=== PATIENT | female | born 1980 | race Hispanic/Latino ===

== ENCOUNTER 2019-07-07 21:49 | Emergency (ER) | payer SELFPAY ==
[2019-07-07] MEDS ORDERED: levoFLOXacin 500 MG TAB PO ONE (22:52)
[2019-07-07] MEDS ORDERED: PHENAZOPYRIDINE HCL 200 MG TAB PO ONE (22:53)
--- NOTE | 2019-07-07 23:04 | ED.PDOC ---
History of Present Illness - General Chief Complaint: Problem Stated Complaint: pain with urinating, frequency Time Seen by Provider: 07/07/19 22:52 Additional Information: Patient is a 38-year-old female who presents to the ED with chief complaint of dysuria. Patient indicates the symptoms began yesterday and have not improved despite taking Azo. Patient has a history of kidney infections and says that her symptoms today are similar to her previous infections. Patient denies any flank pain, fever or chills. Patient indicates she has burning when she pees and increased urinary frequency with mild suprapubic discomfort. Patient denies nausea or vomiting and is otherwise asymptomatic. - History of Present Illness Allergies/Adverse Reactions: Allergies NO KNOWN ALLERGY Allergy (Verified 07/07/19 22:33) Home Medications: Ambulatory Orders Ciprofloxacin HCl [Cipro] 500 mg PO BID #20 tab 07/07/19 Phenazopyridine HCl [Pyridium] 200 mg PO TID #6 tab 07/07/19 Review of Systems - Review of Systems Constitutional: States: no symptoms reported. Denies: chills, fever EENTM: States: no symptoms reported Respiratory: States: no symptoms reported. Denies: cough, short of breath Cardiology: States: no symptoms reported. Denies: chest pain, palpitations Gastrointestinal/Abdominal: States: see HPI. Denies: nausea, vomiting Genitourinary: States: see HPI, dysuria, frequency. Denies: hematuria Musculoskeletal: States: no symptoms reported. Denies: back pain Skin: States: no symptoms reported. Denies: rash All other Systems: Reviewed and Negative Physical Exam - Physical Exam General Appearance: Alert, Comfortable, No apparent distress, Well Developed, Well Nourished Neck: supple, normal inspection Cardiovascular/Respiratory: no M/R/G, normal peripheral pulses, no JVD, normal breath sounds, no respiratory distress, tachycardia Gastrointestinal/Abdominal: normal bowel sounds, soft, no organomegaly, tenderness - Mild suprapubic Back Exam: normal inspection, no CVA tenderness, no vertebral tenderness Extremity: normal range of motion, normal inspection Neurologic: cork sorter II-XII nml as tested, no motor/sensory deficits, alert, normal mood/affect, oriented x 3 Skin Exam: normal color, warm/dry Progress - Progress Progress: 07/07/19 23:05 Patient's UA has resulted and shows an obvious UTI. Patient is slightly tachycardic but has no evidence of pyelonephritis. She has no flank pain, nausea, vomiting or fever. There is no indication for parental therapy or blood work today, will treat with p.o. Levaquin and discharge with p.o. antibiotics. Have given patient specific return to ED precautions including for fever, vomiting, and increased pain. Patient will follow-up with her PCP. Vital signs stable, patient is NAD and looks clinically well and I believe is safe for discharge with outpatient follow-up. Follow-up instructions, discharge instructions and return to ED precautions discussed with patient. Patient voices understanding and willingness to comply with instructions. All laboratory and radiographic results have been discussed with the patient, and all questions answered. Patient is happy with plan. Departure - Departure Clinical Impression: Urinary tract infection Time of Disposition: 23:07 Disposition: Discharge to Home or Self Care Condition: Good Departure Forms: ED Discharge - Pt. Copy, Patient Portal Self Enrollment Instructions: DI for Urinary Tract Infection (UTI) Prescriptions: Ciprofloxacin HCl [Cipro] 500 mg PO BID #20 tab Phenazopyridine HCl [Pyridium] 200 mg PO TID #6 tab Home Medications: Ambulatory Orders Ciprofloxacin HCl [Cipro] 500 mg PO BID #20 tab 07/07/19 Phenazopyridine HCl [Pyridium] 200 mg PO TID #6 tab 07/07/19
[2019-07-07 23:26] VITALS: BP 140/83; O2SAT 97
== END 2019-07-07 23:26 | disposition home or self-care (01) ==
LOC: ER 21:49
DX: N39.0 Urinary tract infection, site not specified (principal); Z87.440 Personal history of urinary (tract) infections

== ENCOUNTER 2020-04-13 07:52 | Emergency (ER) | payer SELFPAY ==
[2020-04-13] MEDS ORDERED: CIPROFLOXACIN 500 MG TAB PO ONE ×2 (09:28→09:29)
[2020-04-13] MEDS ORDERED: IBUPROFEN 200 MG TAB PO ONE (09:29)
[2020-04-13] MEDS ORDERED: FLUCONAZOLE 100 MG TAB PO ONE (09:30)
--- NOTE | 2020-04-13 09:31 | ED.PDOC ---
History of Present Illness - General Chief Complaint: Problem Stated Complaint: urinary frequency, burning, and cold chills Time Seen by Provider: 04/13/20 07:54 Source: patient Exam Limitations: no limitations - History of Present Illness Initial Comments: Patient is a 39-year-old female presented emergency room secondary to symptoms of urinary frequency and dysuria for the last 24 hours. No flank pain. No definite fever. No nausea vomiting or diarrhea. No evidence of sepsis. Timing/Duration: 24 hours Severity: moderate Improving Factors: nothing Worsening Factors: nothing Associated Symptoms: denies symptoms Allergies/Adverse Reactions: Allergies NO KNOWN ALLERGY Allergy (Verified 04/13/20 08:09) Home Medications: Ambulatory Orders Ciprofloxacin [Cipro] 500 mg PO BID #14 tab 04/13/20 Metformin HCl [Fortamet] 1,000 mg PO BID 04/13/20 Review of Systems - Review of Systems Constitutional: States: no symptoms reported EENTM: States: no symptoms reported Respiratory: States: no symptoms reported Cardiology: States: no symptoms reported Gastrointestinal/Abdominal: States: no symptoms reported Genitourinary: States: see HPI, dysuria, frequency. Denies: discharge, hematuria Musculoskeletal: States: no symptoms reported Skin: States: no symptoms reported Neurological: States: no symptoms reported Endocrine: States: no symptoms reported Hematologic/Lymphatic: States: no symptoms reported All other Systems: No Change from Baseline Past Medical History (General) - Patient Medical History Hx Seizures: No Hx Stroke: No Hx Dementia: No Hx Asthma: No Hx of COPD: No Hx Cardiac Disorders: No Hx Congestive Heart Failure: No Hx Pacemaker: No Hx Hypertension: No Hx Thyroid Disease: No Hx Diabetes: No Hx Gastroesophageal Reflux: No Hx Renal Disease: No Hx Cancer: No Hx of HIV: No Hx Hepatitis C: No Hx MRSA: No - Vaccination History Hx Tetanus, Diphtheria Vaccination: No Hx Influenza Vaccination: No Hx Pneumococcal Vaccination: No - Social History Hx Tobacco Use: No Hx Chewing Tobacco Use: No Hx Alcohol Use: No Hx Substance Use: No Hx Substance Use Treatment: No Hx Depression: No Hx Physical Abuse: No Hx Emotional Abuse: No Hx Suspected Abuse: No - Female History Patient : No Family Medical History - Family History Mother Living Status: Hx Family Cancer: Yes Physical Exam - Physical Exam General Appearance: Alert, Comfortable, No apparent distress Eye Exam: bilateral normal Ears, Nose, Throat: hearing grossly normal, normal pharynx Neck: full range of motion, supple Respiratory: no respiratory distress, no accessory muscle use Cardiovascular/Chest: normal peripheral pulses, no edema Peripheral Pulses: radial,right: 2+, radial,left: 2+ Gastrointestinal/Abdominal: non tender, soft Back Exam: no CVA tenderness, no vertebral tenderness Extremity: non-tender, no pedal edema, normal capillary refill Neurologic: heddler tier II-XII nml as tested, alert, normal mood/affect, oriented x 3 Skin Exam: normal color Comments: Vital Signs - 24 hr 04/13/20 04/13/20 08:14 09:00 Temperature 97.7 F 97.1 F L Pulse Rate [ 94 H 84 Left Radial] Respiratory 18 14 Rate Blood Pressure 143/94 116/76 [Left Arm] O2 Sat by Pulse 99 99 Oximetry Progress - Progress Progress: 04/13/20 09:31 The patient is a 39-year-old female presented emergency room secondary to symptoms of a cystitis or urinary tract infection. Urine is being cultured. Urinalysis is consistent. As the patient has tolerated ciprofloxacin well in the past so we will go ahead and start her back on that. She will receive a 7- day course. She did receive 1 dose of Diflucan here as well. She does need to increase her fluid intake. She can also take Motrin and Azo as needed for discomfort. ER warnings are given for any significant worsening. I do recommend that she have a test of cure in a couple of weeks with her primary care doctor. [email or web address] [id number] - Results/Orders Results/Orders: Laboratory Tests 04/13/20 04/13/20 04/13/20 08:00 08:00 08:13 POC Glucose 119 H Urine Color Yellow Urine Appearance Cloudy Urine pH 7.0 Ur Specific [place] 1.025 Urine Protein >=300 H Urine Glucose (UA) Negative Urine Ketones Negative Urine Blood Moderate H Urine Nitrite Negative Urine Bilirubin Negative Urine Urobilinogen 0.2 Ur Leukocyte Esterase Large H Urine RBC 5-10 H Urine WBC Tntc H Ur Epithelial Cells 0-1 Urine Bacteria 1+ Urine HCG, Qual Negative - EKG/XRAY/CT CT Ordered: No CT Interpretation Call Back: No Departure - Departure Clinical Impression: Urinary tract infection Qualifiers: Urinary tract infection type: acute cystitis Hematuria presence: without hematuria Qualified Code(s): N30.00 - Acute cystitis without hematuria Disposition: Discharge to Home or Self Care Condition: Fair Departure Forms: ED Discharge - Pt. Copy, Patient Portal Self Enrollment Diet: diabetic diet Activity: increase activity as tolerated Prescriptions: Ciprofloxacin [Cipro] 500 mg PO BID #14 tab Home Medications: Ambulatory Orders Ciprofloxacin [Cipro] 500 mg PO BID #14 tab 04/13/20 Metformin HCl [Fortamet] 1,000 mg PO BID 04/13/20 Additional Instructions: The patient is a 39-year-old female presented emergency room secondary to symptoms of a cystitis or urinary tract infection. Urine is being cultured. Urinalysis is consistent. As the patient has tolerated ciprofloxacin well in the past so we will go ahead and start her back on that. She will receive a 7- day course. She did receive 1 dose of Diflucan here as well. She does need to increase her fluid intake. She can also take Motrin and Azo as needed for discomfort. ER warnings are given for any significant worsening. I do recommend that she have a test of cure in a couple of weeks with her primary care doctor.
[2020-04-13 09:56] VITALS: BP 124/90; TEMP 97.5; O2SAT 98
== END 2020-04-13 09:57 | disposition home or self-care (01) ==
LOC: ER 07:52
DX: N30.00 Acute cystitis without hematuria (principal)